=== PATIENT | female | born 1990 | race African-American/Black ===

== ENCOUNTER 2022-11-06 23:35 | Emergency (ER) | payer OTHER ==
[~2022-11-06] VITALS: Ht 175.3 cm; Wt 65.9 kg
[2022-11-07 00:46] VITALS: BP 127/74
[2022-11-07 02:13] LABS: Urine Bacteria NONE SEEN /hpf (None Seen); Urine Blood Negative /uL (Negative); Urine WBC 7 /hpf (0 - 5)
[2022-11-07] MEDS ORDERED: FLUC150T2 PO (02:26)
[2022-11-07] MEDS ORDERED: NITR-87 PO (02:26)
== END 2022-11-07 02:32 | disposition home or self-care (01) ==
LOC: ER 23:35
DX: B37.31 Acute candidiasis of vulva and vagina (principal); N39.0 Urinary tract infection, site not specified
CPT/HCPCS: 81001